=== PATIENT | female | born 1975 | race Caucasian/White ===

== ENCOUNTER 2021-11-04 06:46 | Inpatient (IN) | payer OTHER ==
[~2021-11-04] VITALS: Ht 162.6 cm; Wt 54.4 kg
[2021-11-04 06:50] VITALS: BP_SYST 130
[2021-11-04] MEDS ORDERED: NACL 0.9% 1,000 ML IV ONE ×2 (07:15→10:30)
[2021-11-04 07:30] LABS: BASOPHILS # (AUTO) 0.1 K/uL (0.0-0.2); BASOPHILS % (AUTO) 1.5 % (0.0-2.0); EOSINOPHILS # (AUTO) 0.1 K/uL (0.0-0.4); EOSINOPHILS % (AUTO) 1.4 % (0.0-4.0); HEMATOCRIT 31.6 % (36-48); HEMOGLOBIN 10.9 g/dL (12.0-16.0); LYMPHOCYTES # (AUTO) 0.6 K/uL (1.0-5.5); LYMPHOCYTES % (AUTO) 6.6 % (20.5-51.5); MEAN CORPUSCULAR HEMOGLOBIN 31 pg (27-31); MEAN CORPUSCULAR HGB CONC 34 % (32-36); MEAN CORPUSCULAR VOLUME 90 fL (79.0-98.0); MONOCYTES # (AUTO) 0.2 K/uL (0.0-1.0); MONOCYTES % (AUTO) 2.6 % (1.7-9.3); NEUTROPHILS # (AUTO) 7.6 K/uL (1.8-7.7); NEUTROPHILS % (AUTO) 87.9 % (40.0-70.0); PLATELET COUNT (AUTO) 142 K/uL (130-430); RED BLOOD CELL COUNT(AUTO) 3.51 MIL/uL (4.2-6.2); RED CELL DISTRIBUTION WIDTH 14.3 % (9.0-15.0); WHITE BLOOD COUNT (AUTO) 8.7 K/uL (4.8-10.8)
[2021-11-04] MEDS ORDERED: MORPHINE 4 MG INJ. 4 MG/ML VIAL IVP ONE ×2 (07:30→08:15)
[2021-11-04] MEDS ORDERED: ONDANSETRON HCL 4 MG/2 ML VIAL IVP ONE (07:30)
[2021-11-04 07:47] LABS: BILIRUBIN,URINE NEGATIVE (NEGATIVE); CLARITY/URINE TURBID (CLEAR); COLOR,URINE YELLOW (YELLOW); GLUCOSE,URINE NEGATIVE (NEGATIVE); KETONES,URINE NEGATIVE (NEGATIVE); LEUKOCYTE ESTERASE ,URINE NEGATIVE (NEGATIVE); NITRITE, URINE NEGATIVE (NEGATIVE); PH,URINE 7.5 (5.0-8.0); PROTEIN URINE NEGATIVE (NEGATIVE); UROBILINOGEN,URINE 0.2 (0.2-1.0)
[2021-11-04 08:02] LABS: BLOOD, URINE TRACE (NEGATIVE)
[2021-11-04 08:03] LABS: BACTERIA,URINE FEW /HPF (None Seen); RBC,URINE 0-3 /HPF (0-3); WBC,URINE 0-3 /HPF (0-3)
[2021-11-04 08:04] LABS: URINE AMORPHOUS PHOSPHATES 3+ /HPF (None Seen)
[2021-11-04] MEDS ORDERED: fentaNYL CITRATE/PF 100 MCG/2 ML AMP IVP ONE ×2 (09:00→12:45)
[2021-11-04] MEDS ORDERED: MORPHINE 4 MG INJ. 4 MG/ML VIAL IVP PRN (10:30)
[2021-11-04] MEDS ORDERED: fentaNYL CITRATE/PF 100 MCG/2 ML AMP ONE (13:18)
[2021-11-04] MEDS ORDERED: HYDROmorphone 1 MG/ML INJ. CARTRIDGE IM PRN (13:45)
[2021-11-04] MEDS ORDERED: NALOXONE HCL 0.4 MG/ML AMP (NARCAN) IVP PRN (13:45)
[2021-11-04] MEDS ORDERED: PANTOPRAZOLE SODIUM 40 MG TAB PO ONE (14:00)
[2021-11-04 17:03] VITALS: BP_SYST 137
[2021-11-04 17:35] VITALS: BP_SYST 137
[2021-11-04] MEDS ORDERED: HYDROmorphone 2 MG/ML VIAL IVP PRN (18:15)
[2021-11-04] MEDS: fentaNYL CITRATE/PF 100 MCG/2 ML AMP IVP PRN (18:57)
[2021-11-04] MEDS: ONDANSETRON HCL 4 MG/2 ML VIAL IVP PRN (18:59)
[2021-11-04 19:00] VITALS: BP_SYST 135
[2021-11-04] MEDS: PANTOPRAZOLE SODIUM 40 MG TAB PO SCH (22:09)
[2021-11-05] MEDS: ONDANSETRON HCL 4 MG/2 ML VIAL IVP PRN ×2 (05:41→10:46)
[2021-11-05] MEDS: fentaNYL CITRATE/PF 100 MCG/2 ML AMP IVP PRN (05:49)
[2021-11-05 08:00] VITALS: BP_SYST 103
[2021-11-05] MEDS: PANTOPRAZOLE SODIUM 40 MG TAB PO SCH (08:20)
[2021-11-05] MEDS ORDERED: ONDANSETRON HCL 4 MG/2 ML VIAL IVP ONE (10:45)
[2021-11-05] MEDS ORDERED: SUCRALFATE 1 GM TABLET PO SCH (12:00)
[2021-11-05 12:57] VITALS: BP_SYST 96
[2021-11-05 15:24] VITALS: BP_SYST 105
== END 2021-11-05 16:10 | disposition home or self-care (01) | DRG 832 ==
LOC: SED 06:46 → SPU 09:20 → SMU 15:31
PROVIDERS: ADMIT Specialist; ATTEND Specialist
DX: O99.612 Diseases of the digestive system complicating pregnancy, second trimester (principal); O26.832 Pregnancy related renal disease, second trimester; Z20.822 Contact with and (suspected) exposure to COVID-19; N20.0 Calculus of kidney; K21.9 Gastro-esophageal reflux disease without esophagitis; Z3A.14 14 weeks gestation of pregnancy
CPT/HCPCS: 36415; 76770; 76805-TC; 81000; 84702; 85025; 86900; 86901; J1170; J2270; J2405; J3010